=== PATIENT | male | born 1970 | race Caucasian/White ===

== ENCOUNTER 2016-12-25 04:17 | Emergency (ER) | payer OTHER ==
[2016-12-25 04:06] LABS: BASOPHILS 0.3 %; BASOPHILS ABSOLUTE 0.02 10/3/uL (0.0-0.16); EOSINOPHILS 6.3 %; EOSINOPHILS ABSOLUTE 0.49 10/3/uL (0.0-0.53); HEMATOCRIT 42.6 % (40.0-51.0); HEMOGLOBIN 15.5 g/dL (13.6-17.8); IMMATURE GRANULOCYTES 0.4 %; IMMATURE GRANULOCYTES ABSOLUTE 0.03 10/3/uL (0.0-0.11); LYMPHOCYTES 33.1 %; LYMPHOCYTES ABSOLUTE 2.59 10/3/uL (0.67-4.30); MEAN CORPUS HGB CONC 36.4 g/dL (32.0-36.0); MEAN PLATELET VOLUME 9.8 fL (9.2-13.0); MONOCYTES 9.3 %; MONOCYTES ABSOLUTE 0.73 10/3/uL (0.21-1.20); NEUTROPHILS 50.6 %; NEUTROPHILS ABSOLUTE 3.96 10/3/uL (2.02-8.40); PLATELET COUNT 230 10/3/uL (150-400); RED CELL COUNT 4.84 10/6/uL (4.7-6.1); WHITE BLOOD CELLS 7.8 10/3/uL (4.5-10.5)
[2016-12-25 04:13] LABS: MANUAL DIFF NO %
[~2016-12-25 04:17] MED LIST: HALF81 PO
[2016-12-25 04:19] LABS: INTERNATIONAL NORMAL RATI 0.9 UNITS (-); PARTIAL THROMBO TIME 27.4 SEC (22.5-37.2); PROTIME (NOT ORD) 12.5 SEC (12.0-14.5)
[2016-12-25 04:25] LABS: A/G RATIO 1.1 (0.7-1.9); ALBUMIN 3.8 G/DL (3.5-5.0); BUN (BLOOD UREA NITROGEN) 14 MG/DL (6-23); C-REACTIVE PROTEIN 3.1 MG/L (<8.0); CALCIUM, SERUM 8.8 MG/DL (8.5-10.4); CHLORIDE, SERUM 110 MMOL/L (96-112); CO2 (CARBON DIOXIDE) 27 MMOL/L (24-34); CREATININE 0.82 MG/DL (0.70-1.30); GFR AFRICAN AMERICAN 125 ML/MIN (>=60); GFR NON AFRICAN AMERICAN 108 ML/MIN (>=60); GLOBULIN 3.5 G/DL (2.5-4.1); SGOT(AST) 22 U/L (5-40); SGPT(ALT) 33 U/L (5-65); SODIUM, SERUM 142 MMOL/L (135-148); TOTAL BILIRUBIN 0.3 MG/DL (0-1.2); TOTAL PROTEIN 7.3 G/DL (6.0-8.5)
[2016-12-25 04:26] LABS: ALKALINE PHOSPHATASE 83 U/L (45-117); GLUCOSE, SERUM 104 MG/DL (60-99)
[2016-12-25 05:57] LABS: SED RATE 5 MM/HR (0-15)
== END 2016-12-25 05:30 | disposition home or self-care (01) ==
LOC: ER 04:17
PROVIDERS: Nurse Practitioner
DX: R51 Headache (principal); I10 Essential (primary) hypertension
CPT/HCPCS: 70450; 80053; 85025; 85610; 85652; 85730; 86140; 93005; 99284